=== PATIENT | female | born 1945 | race Caucasian/White ===

== ENCOUNTER 2018-03-13 07:27 | Day surgery (SDC) | payer MEDICARE, OTHER ==
[~2018-03-13] VITALS: Ht 162.6 cm; Wt 70.8 kg
[~2018-03-13 07:27] MED LIST: OMEPRAZOLE20 MG PO
--- NOTE | 2018-03-13 08:47 | NUR ---
03/13/18 0847 Nirav Hairston RESPONDS TO TAP AND VOICE ON ENTRY TO PACU. CANNOT ANSWER QUESTIONS YET. FALLS ASLEEP EASILY
--- NOTE | 2018-03-14 18:28 | OR ---
[facility] [address], [place] [address] Signed DATE OF OPERATION: 03/13/2018 SURGEON: Mireille Marroquin MD PREOPERATIVE DIAGNOSIS: Colon screening. POSTOPERATIVE DIAGNOSES: 1. Small polyp proximal ascending colon. 2. Diverticular changes of sigmoid. PROCEDURE: Total colonoscopy to cecum with cold morcellation polypectomy x1. ANESTHESIA: Intravenous sedation fentanyl 100 mcg, Versed 4 mg. INDICATION: This 72-year-old white woman is a patient of Dr. Oconnor and well known to me from the past. She underwent colonoscopy 10 years ago, which was normal. She is symptom-free at this time. She is admitted to undergo surveillance colonoscopy. She understands the risks of bleeding, infection, and perforation. She has no family history of colon cancer. FINDINGS: The prep was good. Complete colonoscopy was undertaken to the cecum. There was a small polyp of the proximal ascending colon, most likely an adenoma. There were scattered diverticula of the sigmoid. No other abnormality. DESCRIPTION OF PROCEDURE: The patient was brought to the endoscopy suite and placed in lateral decubitus position, given intravenous sedation to the point of slurred speech and nystagmus. Digital rectal examination was normal. Olympus video colonoscope was passed in the rectum and manipulated throughout the colon ultimately intubating the cecum. Irrigation was undertaken as needed. The scope was withdrawn and in the proximal ascending colon was a small sessile polyp, most likely a tubular adenoma. This was excised with cold morcellation technique. The scope was carefully withdrawn. Remaining colon was examined thoroughly showing only diverticular changes of the sigmoid, which were small. Retroflexed view of the rectum was normal. Electronically Signed By: MIREILLE MARROQUIN MD 03/14/18 1828 PATIENT NAME: YOLI PUTNAM OPERATIVE REPORT DATE OF : 43 REPORT #: [id number] PHYSICIAN: MIREILLE MARROQUIN MD PCP: IZAIAH OCONNOR DO REPORT IS CONFIDENTIAL AND NOT TO BE RELEASED WITHOUT AUTHORIZATION [facility] [address] [place] [address] [place], [place] [address] Signed The scope was removed and the patient was taken to recovery room in good condition. CONCLUDING DIAGNOSES: Polyps x1 and diverticulosis of sigmoid. PLAN: Recommend repeat colonoscopy in 5 years or sooner if clinically indicated. She will maintain a high-fiber diet otherwise. She will return to the ongoing care of Dr. Oconnor. MD VIVIANA Price/MODL /[id number] cc: Izaiah Oconnor DO Copies: IZAIAH OCONNOR DO ~ Electronically Signed By: MIREILLE MARROQUIN MD 03/14/18 1828 PATIENT NAME: YOLI PUTNAM OPERATIVE REPORT DATE OF : 43 REPORT #: [id number] PHYSICIAN: MIREILLE MARROQUIN MD PCP: IZAIAH OCONNOR DO REPORT IS CONFIDENTIAL AND NOT TO BE RELEASED WITHOUT AUTHORIZATION
== END 2018-03-13 09:42 | disposition home or self-care (01) ==
LOC: DS 07:27 → OPS 07:27 → DS 08:30 → OPS 08:30
PROVIDERS: Surgery
PROC: 0DBK8ZZ Excision of Ascending Colon, Via Natural or Artificial Opening Endoscopic (ICD-10-PCS; principal; 2018-03-13 08:30)
DX: Z12.11 Encounter for screening for malignant neoplasm of colon (principal); D12.2 Benign neoplasm of ascending colon; K57.30 Diverticulosis of large intestine without perforation or abscess without bleeding; Z98.890 Other specified postprocedural states
CPT/HCPCS: 88305; 99153; G0500; J2250; J3010; J7120

== ENCOUNTER 2023-09-29 20:14 | Emergency (ER) | payer MEDICARE, OTHER ==
[~2023-09-29] VITALS: Ht 162.6 cm; Wt 70.8 kg
[2023-09-29] MEDS ORDERED: FAMOTIDINE20 MG PO (20:26)
[2023-09-29] MEDS ORDERED: ATORVASTATIN CA40 MG PO (20:26)
[2023-09-29 20:37] LABS: BASOPHILS 0.6 % (0-2); EOSINOPHILS 0.9 % (0-6); HEMATOCRIT 44.2 % (35.0-50.0); HEMOGLOBIN 15.2 g/dL (12.0-18.0); MCH 31.6 (27-36); MCHC 34.4 g/dl (30-36); MONOCYTES 3.3 % (0-12); NEUTROPHILS 52.2 % (39-80); PLATELET COUNT 215 K/uL (140-440); RDW 12.6 (10.5-15.0)
[2023-09-29 20:53] LABS: ALBUMIN/GLOBULIN RATIO 1.21 (1.1-2.4); ANION GAP 15.8 (7-21); BILIRUBIN, TOTAL 0.8 ng/dL (0.2-1.0); BUN/CREATININE RATIO 8.63 (6.0-28.6); CALCIUM 9.7 mg/dL (8.5-10.1); CREATININE, SERUM 1.39 mg/dL (0.55-1.02); MAGNESIUM 2.1 mg/dL (1.8-2.4); POTASSIUM 3.8 mmol/L (3.5-5.1); PROTEIN, TOTAL 7.3 g/dL (6.4-8.2)
[2023-09-29 21:37] LABS: INFLUENZA B NAA NEGATIVE (NEGATIVE); RESPIRATORY SYNCYTIAL VIR NAA NEGATIVE (NEGATIVE)
[2023-09-29 22:25] LABS: ANION GAP 14.2 (7-21); CALCIUM 9.1 mg/dL (8.5-10.1); CREATININE, SERUM 1.1 mg/dL (0.55-1.02); POTASSIUM 3.2 mmol/L (3.5-5.1)
[2023-09-29 22:26] LABS: BILIRUBIN, URINE NEGATIVE (negative); BLOOD/HGB, URINE NEGATIVE (Negative); KETONE, URINE NEGATIVE (Negative); LEUK ESTERASE, URINE NEGATIVE (negative); NITRITE, URINE NEGATIVE (negative); PH, URINE >=9.0 (5-7)
[2023-09-29 22:36] LABS: BACTERIA, URINE RARE /hpf (negative); CASTS, URINE NONE SEEN \\lpf; CRYSTALS, URINE NONE SEEN (0-1+); EPITHELIAL CELLS, URINE SQUAMOUS 1+ /lpf (0-1+); RED BLOOD CELLS, URINE 0-1 /hpf (0-5); REFLEX CULTURE, URINE No (No)
[2023-09-29] MEDS ORDERED: ONDANSETRON ODT8 MG PO (22:43)
[2023-09-29] MEDS ORDERED: LOMOTIL TABLET1 EACH PO (22:43)
[2023-09-29 23:08] VITALS: BP 130/72
== END 2023-09-29 23:08 | disposition home or self-care (01) ==
LOC: ED 20:14
PROVIDERS: Family Medicine
DX: K52.9 Noninfective gastroenteritis and colitis, unspecified (principal); Z79.899 Other long term (current) drug therapy; K21.9 Gastro-esophageal reflux disease without esophagitis
CPT/HCPCS: 36415; 80048; 80053; 81001; 83735; 85025; 87502; 96361; 96374; 99284-25; A9270; J2405; J7121; U0002